=== PATIENT | female | born 1955 | race Hispanic/Latino ===

== ENCOUNTER 2017-09-10 14:45 | Outpatient (CLI) | payer BC ==
--- NOTE | 2017-09-10 15:35 | MMO ---
BILATERAL MAMMOGRAMS: HISTORY: Screening mammography. COMPARISON: 08/19/2013, 08/18/2014, and 08/13/2016. FINDINGS: Heterogeneously dense fibroglandular tissue and benign-appearing calcifications are again demonstrat ed. There is no dominant mass or suspicious calcifications. The study was evaluated with the assistance of computer-aided detection. IMPRESSION: BI-RADS category 1. Negative. Suggest routine followup. POS: IVETTE
== END 2017-09-10 14:46 | disposition home or self-care (01) ==
LOC: MAMMO 14:45
PROVIDERS: ATTEND Student in an Organized Health Care Education/Training Program
DX: Z12.31 Encounter for screening mammogram for malignant neoplasm of breast (principal)
CPT/HCPCS: 77067; G0202

== ENCOUNTER 2018-09-10 09:15 | Outpatient (CLI) | payer BC ==
--- NOTE | 2018-09-10 11:43 | BD ---
DEXA BONE DENSITY SCAN: 09/10/2018 HISTORY: Postmenopausal female, undergoing screening for osteoporosis. COMPARISON: 06/19/2010 FINDINGS: LUMBAR SPINE BMD (g/cm2) T-SCORE PREVIOUS T-SCORE L1 0.865 -1.1 -0.5 L2 0.867 -1.5 -1.3 L3 0.867 -2.0 -0.2 L4 0.897 -1.5 -0.2 L1-L4 0.875 -1.6 -0.5 FEMORAL NECK: 0.765 -0.8 -0.1 TOTAL PROXIMAL FEMUR: 0.928 -0.1 0.3 When compared to the prior examination, the total lumbar spine bone mineral density has decreased by 12.1%, when compared to the 2010 exam, and the bone mineral density within the proximal femur has dec reased by 4.3% when compared to the 2010 exam. The FRAX-WHO Fracture Risk Assessment Tool reports a 10 year fracture risk of 4.1% for major osteopor otic fracture and 0.2% for hip fracture. The bone mineral density within the femoral neck has improved by 3.1% when compared to the prior exam . The bone mineral density within the lumbar spine has improved by 8.8% when compared to the prior e xam. The FRAX-WHO Fracture Risk Assessment Score reports a 10-year fracture risk, in an untreated patient, at 3.4% for a major osteoporotic fracture and 0.3% for a hip fracture. IMPRESSION: Osteopenia within the lumbar spine, correlating with a moderately increased risk for fracture. POS: IVETTE
== END 2018-09-10 09:16 | disposition home or self-care (01) ==
LOC: BICMAMMO 09:15
PROVIDERS: ATTEND Advanced Practice Midwife
DX: Z12.31 Encounter for screening mammogram for malignant neoplasm of breast (principal); Z13.820 Encounter for screening for osteoporosis; Z78.0 Asymptomatic menopausal state; M85.88 Other specified disorders of bone density and structure, other site; R92.1 Mammographic calcification found on diagnostic imaging of breast
CPT/HCPCS: 77063; 77067; 77080

== ENCOUNTER 2019-08-09 07:55 | Day surgery (SDC) | payer OTHER ==
[2019-08-09] MEDS ORDERED: Cosyntropin 250 MCG VIAL SLOW IVP SCH (08:30)
[2019-08-09] MEDS ORDERED: Sodium Chloride 0.9% 40 ML ONE (08:59)
[2019-08-09 10:31] VITALS: BP 169/71; TEMP 97.7
== END 2019-08-09 10:57 | disposition home or self-care (01) ==
LOC: ONC/OP 07:55
PROVIDERS: ATTEND Urology
DX: E27.8 Other specified disorders of adrenal gland (principal)
CPT/HCPCS: 36415; 80400; 82024; 96374; J0834

== ENCOUNTER 2020-04-16 10:20 | Outpatient (CLI) | payer OTHER ==
--- NOTE | 2020-04-16 16:02 | BD ---
DEXA SCAN: DATE: 04/16/2020. PROVIDED CLINICAL HISTORY: Postmenopausal screening. FINDINGS: Lumbar Spine: BMD (g/cm2) L1 0.888 T-Score: -0.9 L2 0.882 T-Score: -1.3 L3 0.861 T-Score: -2.0 L4 0.921 T-Score: -1.3 L1-L4 0.889 T-Score: -1.4 Femoral Neck: 0.758 T-Score: -0.8 Total Femur: 0.944 T-Score: 0 TEN-YEAR FRACTURE RISK: Major osteoporotic fracture: 4.1%. Hip fracture: 0.2%. Impression: Calculated bone mineral density in the lumbar spine meets WHO criteria for osteopenia and places the patient at increased risk for fracture. POS: AH
== END 2020-04-16 10:21 | disposition home or self-care (01) ==
LOC: BICMAMMO 10:20
PROVIDERS: ATTEND Advanced Practice Midwife
DX: M85.88 Other specified disorders of bone density and structure, other site (principal)
CPT/HCPCS: 77080

== ENCOUNTER 2023-05-22 14:49 | Outpatient (CLI) | payer MEDICARE | END 2023-05-22 14:50 | disposition home or self-care (01) | LOC: BICMAMMO 14:49 | PROVIDERS: ATTEND Student in an Organized Health Care Education/Training Program | DX: Z13.820 Encounter for screening for osteoporosis (principal); M85.89 Other specified disorders of bone density and structure, multiple sites | CPT/HCPCS: 77080 ==